=== PATIENT | female | born 1975 | race Caucasian/White ===

== ENCOUNTER 2024-02-23 15:10 | Inpatient (IN) | payer OTHER, SELFPAY ==
[2024-02-23 09:51] VITALS: BP 115/78
[2024-02-23 10:10] LABS: % Basophils 0.4 % (0-2); % Eosinophils 0.9 % (0-6); % Immature Granulocytes 0.4 % (0-0.5); % Lymphocytes 14.3 % (20.5-51.1); Absolute Basophils 0.1 10^3/uL (0-0.2); Absolute Eosinophils 0.1 10^3/uL (0-0.7); Absolute Immature Granulocytes 0.1 10^3/uL (0-0.05); Absolute Monocytes 0.7 10^3/uL (0.1-0.6); Absolute Neutrophils 11.2 10^3/uL (1.4-6.5); Hematocrit 40.3 % (37.0-47.0); Hemoglobin 13.3 g/dL (12.0-16.0); Mean Corpuscular Hgb 29.8 pg (27.0-31.0); Mean Corpuscular Volume 90.4 fL (81.0-99.0); Mean Platelet Volume 8.9 fL (7.4-10.4); Nucleated Red Blood Cells % 0 %; Platelet Count 333 10^3/uL (130-400); Red Blood Cell Count 4.46 10^6/uL (4.20-5.40); Red Cell Dist. Width 12.6 % (11.5-14.5); White Blood Cell Count 14.2 10^3/uL (4.8-10.8)
[2024-02-23 10:25] LABS: Potassium 3.9 mmol/L (3.5-5.1)
[2024-02-23 10:26] LABS: ALT (SGPT) 34 U/L (0-35); AST (SGOT) 29 U/L (14-36); Albumin 4.2 g/dl (3.5-5.0); Alkaline Phosphatase 65 U/L (38-126); Blood Urea Nitrogen 16 mg/dl (7-17); Calcium 9.5 mg/dl (8.4-10.2); Carbon Dioxide 21 mmol/L (22-30); Chloride 107 mmol/L (98-107); Glucose 95 mg/dl (70-99); Sodium 134 mmol/L (135-145); Total Bilirubin 0.5 mg/dl (0.2-1.3); Total Protein 7.6 g/dl (6.3-8.2); eGFR > 60.00
[2024-02-23 11:36] VITALS: BP 127/86
--- NOTE | 2024-02-23 11:38 | ED.GENMED ---
History of Present Illness
General
Chief Complaint: Abdominal Pain
Source: patient
Exam Limitations: none
Time Seen by Provider: 02/23/24 11:18
Nursing documentation reviewed up to this point in time: agreed with
Travel History
Have you had any contact with someone who has COVID-19?: No
Do you have any symptoms of coronavirus? Fever > 100 degrees, chills, cough, shortness of breath, sore throat, loss of taste or smell, muscle aches, or headache?: No
History of Present Illness
History of Present Illness:
8-year-old female with lower abdominal pain, vomiting, diarrhea and rectal bleeding. She feels lower pressure in her abdomen.
Phy Exam
Physical Exam
Physical Exam:
Physical Exam
General: afebrile
Neck: supple. no meningeal signs. normal posterior pharynx
Heart: s1/s2 regular rate and rhythm, no murmur. equal radial
pulses.
HEENT: Pupils equal round reactive to light, EOMI
Lungs: no acute respiratory distress. clear bilaterally
Abdomen: normal bowel sounds. Bilateral lower abdominal tenderness. no CVAT, rectal exam no stool
Neuro: alert and oriented. no focal neurological deficits cranial nerves II through XII intact
Skin: no rash
Psychiatric: well kept. interactive and cooperative
Extremities: no edema. no calf tenderness. negative homans. good distal pulses
Course
Orders/Labs/Results
Orders:
Orders
02/23/24 10:01
CMP [Comprehensive Metabolic Panel] Urgent
Complete Blood Count/With Diff Urgent
HCG, Serum Qualitative Screen Urgent
Comment: ADD ON
02/23/24 11:32
CT Abd/pelvis W Iv Cont Urgent
Comment:
Reason For Exam: bilateral lower abdominal pain, tenderness, n/v/d
02/23/24 11:40
Add On- LAB Urgent
Tests Added?: hcg qualitative
02/23/24 13:40
Electrocardiogram (*1) Stat
Reason for Study: Abdominal Pain
EKG- Treatment ONCE
02/23/24 13:41
Electrocardiogram (*1) Urgent
Reason for Study: Abdominal Pain
Abnormal Lab Results
02/23/24
10:01
WBC 14.2 H 10^3/uL
(4.8-10.8)
Abs Immat Gran (auto) 0.1 H 10^3/uL
(0-0.05)
Absolute Neuts (auto) 11.2 H 10^3/uL
(1.4-6.5)
Absolute Monos (auto) 0.7 H 10^3/uL
(0.1-0.6)
Neutrophils % 79.0 H %
(42.2-75.2)
Lymphocytes % 14.3 L %
(20.5-51.1)
Sodium 134 L mmol/L
(135-145)
Carbon Dioxide 21 L mmol/L
(22-30)
Creatinine 1.1 H mg/dL
(0.6-1.0)
02/23/24 10:01
02/23/24 10:01
Vital Signs
Initial and Last Documented VS:
Initial Vital Signs
Temp Pulse Resp BP Pulse Ox
98.6 F 81 18 115/78 99
02/23/24 09:51 02/23/24 09:51 02/23/24 09:51 02/23/24 09:51 02/23/24 09:51
Last Documented Vital Signs
Temp Pulse Resp BP Pulse Ox
98.9 F 72 18 126/86 98
02/23/24 13:59 02/23/24 13:59 02/23/24 11:36 02/23/24 13:59 02/23/24 13:59
MDM/Problems Addressed
Differential Diagnosis Includes:
Ischemic colitis, rectal bleeding
MDM/Problems Addressed:
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 Admit to hospitalist. [place] text message also sent to gastroenterology, Dr. Montero.
*Radiology
Radiology exam reviewed: radiology read reviewed (CT abdomen pelvis shows colitis, superior mesenteric vein thrombosis)
*Pulse Oximetry
Patient hypoxic: no
*EKG
Interpreted by ED Provider?: Yes
EKG Intrepretation Date: 02/23/24
EKG Intrepretation Time: 13:55
Interpretation: abnormal
Comparison EKG: no comparison EKG present
Heart Rate: 72
Rate: normal
Rhythm: sinus
Advance: normal axis
Interval: normal interval
QRS Pattern: normal QRS
Ischemia: non-specific ST changes
*Seismic Prospecting Observer Interpretation
Rate: normal
Interpretation: normal
Heart Rate: 72
Rhythm: sinus
*Critical Care Note
Total Time (30-74mins, 75-104mins- exclusive of procedures): Not Applicable
Patient Management
Social determinants of health affecting care: Living situation and Strong social support
Discussion with other providers: Hospitalist and Music Engineer (gastroenterology Dr. Montero)
Escalation/DeEscalation of care consider admission/obs:
admit indicated
ED Attending Note
-
Portions of this chart may have been created with voice recognition software.� Occasional wrong word or��sound alike� substitutions may have occurred due to the inherent limitations of voice recognition software.
Discharge Plan
Departure
Patient Disposition: Admit
Date of Disposition: 02/23/24
Time of Disposition: 13:20
Admit to: Telemetry
Presentation/result/management discussed w/ accepting MD/: Hospitalist
Condition: Good
Discharge Problem:
Colitis, Rectal bleeding, Superior mesenteric vein thrombosis
Prescriptions:
No Action
norgestimate-ethinyl estradiol [Ada] 0.25-35 mg-mcg Tablet
1 tab PO DAILY
cyanocobalamin (vitamin B-12) [Vitamin B-12] 1,000 mcg Tablet
1,000 mcg PO DAILY
Hair,Skin and Nails Tablet
1 tab PO HS
topiramate 100 mg Tablet
100 mg PO HS
escitalopram oxalate 20 mg Tablet
20 mg PO DAILY
bupropion HCl 150 mg Tablet Extended Release 24 Hr
150 mg PO DAILY
red yeast rice 600 mg Capsule
600 mg PO DAILY
Ubrelvy 100 mg Tablet
100 mg PO DAILYPRN PRN (Reason: migraine)
rizatriptan
1 tab PO DAILYPRN PRN (Reason: migraine)
Referrals:
Mely Hernandez CRNP [Family Provider] -
Interventions
Interventions:
*General Assessment Last Done: 02/23/24 11:39
ED- Fall Risk Assessment Last Done: 02/23/24 11:39
AO-Lldrrj-Ogoreqvdfb Assessment Last Done: 02/23/24 11:39
Discharge Date and Time
Print Language: MOHAWK
[2024-02-23 12:23] LABS: HCG, Serum Qualitative Screen Negative
[2024-02-23 13:59] VITALS: BP 126/86
--- NOTE | 2024-02-23 14:15 | HPS.HSE ---
Family Physician
-
Family Physician: KEARA Gaytan
Chief Complaint
-
Abdominal pain associated with vomiting diarrhea
History of Present Illness
48-year-old with past medical history for hypothyroidism and migraine presented to us with lower abdominal pressure associate with multiple episodes of nausea, vomiting, diarrhea, rectal bleeding since last night. Patient denied any headache,
dizziness, syncopal episode. Patient denied fever, chills, chest pain, short of breath. Patient patient denied dysuria hematuria.
CT with colitis, stented superior mesenteric vein suspicious for nonocclusive SMV thrombus
Admitted for further management
Medical History
Past Medical History
Past Medical History: Reports Other
Additional Past Medical History:
Hypothyroidism
Migraines
Past Surgical History: Reports Other
Additional Past Surgical History:
[place] tooth extraction
Social History
Tobacco: Non-smoker
Alcohol: None
Drug: None
Personal:
Living: With Family
Family History
Family History: Not pertinent
Allergies / Home Medications
Allergies reflects when Allergies were last updated in [employer].
Home Medications with original date entered in [employer]
Allergy/Medication List:
Allergies
Allergy/AdvReac Type Severity Reaction Status Date / Time
Sulfa (Sulfonamide Allergy Unknown Unknown Verified 02/23/24 09:57
Antibiotics)
Home Medications
bupropion HCl 150 mg 24 hr tablet, extended release 150 mg PO DAILY 02/23/24
cyanocobalamin (vitamin B-12) 1,000 mcg tablet (Vitamin B-12) 1,000 mcg PO DAILY 02/23/24
escitalopram oxalate 20 mg tablet 20 mg PO DAILY 02/23/24
multivitamin with minerals (Hair,Skin and Nails tablet) 1 tab PO HS 02/23/24
norgestimate 0.25 mg-ethinyl estradiol 35 mcg tablet (Ada) 1 tab PO DAILY 02/23/24
red yeast rice 600 mg capsule 600 mg PO DAILY 02/23/24
rizatriptan 1 tab PO DAILYPRN PRN migraine 02/23/24
topiramate 100 mg tablet 100 mg PO HS 02/23/24
ubrogepant 100 mg tablet (Ubrelvy) 100 mg PO DAILYPRN PRN migraine 02/23/24
Review of Systems
-
Constitutional: Reports No Symptoms
EENT: Reports No Symptoms
Respiratory: Reports No Symptoms
Cardiac: Reports No Symptoms
Abdomen/GI: Reports Abdominal Pain, Nausea, Vomiting and Diarrhea
: Reports No Symptoms
Musculoskeletal: Reports No Symptoms
Skin: Reports No Symptoms
Neurological: Reports No Symptoms
Endocrine: Reports No Symptoms
Hematologic/Lymphatic: Reports No Symptoms
Psych: Reports No Symptoms
Physical Exam
Vital Signs
Vital Signs
Temp Pulse Resp BP Pulse Ox
98.9 F 72 18 126/86 98
02/23/24 13:59 02/23/24 13:59 02/23/24 11:36 02/23/24 13:59 02/23/24 13:59
Physical Exam
General: Well Developed, Well Nourished and No Apparent Distress
HEENT: NormoCephalic, Moist mucous membranes and Atraumatic
Respiratory: Clear
Cardiac: S1/S2 and Regular Rhythm; No Murmur or Rub
GI: Soft, Non Distended, Normal Bowel Sounds and Tender; No Organomegaly
Rectal: Deferred by Provider
Musculoskeletal: No Clubbing, No Cyanosis and No Edema
Skin: No Rash
Neuro: AO x 3 and Nonfocal/grossly intact
Psych: Calm
Laboratory Results
-
02/23/24 10:01
02/23/24 10:01
Laboratory Results
Total Bilirubin 0.5 mg/dl (0.2-1.3) 02/23/24 10:01
AST 29 U/L (14-36) 02/23/24 10:01
ALT 34 U/L (0-35) 02/23/24 10:01
Alkaline Phosphatase 65 U/L (38-126) 02/23/24 10:01
Data Reviewed
-
CT Scan: Report Reviewed by me
Lab Data: Labs Reviewed by me
Impression/Plan
-
# Rectal bleeding likely from colitis
-WBCs 14.2
-CT abdomen pelvis with impression of Mild to moderate colitis extending from the transverse colon through the mid sigmoid colon. Mild pericolonic stranding. No free fluid seen within the abdomen or pelvis.Small filling defect seen within the
central superior mesenteric vein suspicious for nonocclusive SMV thrombus.
-Hemoglobin stable at 13.3
-Continue to trend hemoglobin
-GI consulted
-colorectal consulted
# Nonocclusive SMV thrombus
-AC deferred to vascular due to rectal bleeding
-vascular consulted
# Acute kidney injury/hyponatremia likely from dehydration
-Creatinine 1.1, sodium 134
-Normal saline continued
-Monitor BMP in a.m.
# Depression/anxiety
-Bupropion, citalopram continued
# Migraines
-Rizatriptan and Topamax continued
# DVT prophylaxis
-
# CODE STATUS
-Full code
[2024-02-23 15:00] VITALS: BP 120/80
--- NOTE | 2024-02-23 15:34 | CON.VAS ---
Medical History
-
Chief Complaint: abd pain, bloody diarrhea
History of Present Illness:
48-year-old female with no significant past medical history
No history of DVT
No history of inflammatory bowel disease
Normal colonoscopy in July 2023
No significant family history for any of the above
Acute onset abdominal pain with diarrhea yesterday evening
Progressed to grossly bloody diarrhea overnight
Presents to the emergency room this morning
She knows of nothing that may have precipitated the current symptoms.
Denies travel
Denies changes to her diet
No unusual foods prior to the onset of symptoms
Cross-sectional imaging demonstrated nonocclusive thrombus in the superior mesenteric vein
Vascular surgery consulted
Past Medical History
Past Medical History: Hypothyroidism and Other (migraines, anxiety)
Past Surgical History: None
Social History
Tobacco: Non-Smoker
Personal:
Living: With Family
Family History
Family History: Reviewed & Not Pertinent and Other (Specifically denies family history of inflammatory bowel disease, hypercoagulability, venous thromboembolism)
Allergies / Home Medications
Allergy/AdvReac Type Severity Reaction Status Date / Time
Sulfa (Sulfonamide Allergy Unknown Unknown Verified 02/23/24 09:57
Antibiotics)
�Medication �Instructions �Recorded �Confirmed �Type
bupropion HCl 150 mg 24 hr tablet, 150 mg PO DAILY 02/23/24 02/23/24 History
extended release
cyanocobalamin (vitamin B-12) 1,000 mcg PO DAILY 02/23/24 02/23/24 History
1,000 mcg tablet (Vitamin B-12)
escitalopram oxalate 20 mg tablet 20 mg PO DAILY 02/23/24 02/23/24 History
multivitamin with minerals 1 tab PO HS 02/23/24 02/23/24 History
(Hair,Skin and Nails tablet)
norgestimate 0.25 mg-ethinyl 1 tab PO DAILY 02/23/24 02/23/24 History
estradiol 35 mcg tablet (Ada)
red yeast rice 600 mg capsule 600 mg PO DAILY 02/23/24 02/23/24 History
rizatriptan 1 tab PO DAILYPRN PRN migraine 02/23/24 02/23/24 History
topiramate 100 mg tablet 100 mg PO HS 02/23/24 02/23/24 History
ubrogepant 100 mg tablet (Ubrelvy) 100 mg PO DAILYPRN PRN migraine 02/23/24 02/23/24 History
Review of Systems
-
History Source: Patient
All other systems: Negative unless noted
Physical Exam
Vital Signs
Temp Pulse Resp BP Pulse Ox
98.9 F 72 18 126/86 98
02/23/24 13:59 02/23/24 13:59 02/23/24 11:36 02/23/24 13:59 02/23/24 13:59
Lab Results
02/23/24 10:01
02/23/24 10:01
Physical Exam
General: Well Developed, No Apparent Distress and Comfortable
HEENT: Normocephalic
Respiratory: Non Labored Respirations
Cardiac: Regular Rhythm
GI: Non Distended
Neuro: AO x 3
Psych: Calm
Assessment / Plan
-
Nonocclusive superior mesenteric vein thrombus as seen on the airline security representative images above. Diffuse left sided colitis with bloody diarrhea. The treatment for this would be initiation of systemic anticoagulation. Colorectal surgery has been
consulted. Would recommend starting this when it is felt to be safe from a colorectal surgery standpoint given her active colitis and lower GI bleeding. Suspect thrombus is related to active inflammation in the colon. Initiate IV ABX in an effort
to simultaneously treat infectious colitis and reduce risk of thrombus conversion to pylephebitis.
Please call with questions or concerns.
Parish Giordano III, MD
[facility]
[phone] (cell)
Data Reviewed
-
CT Scan: Image Personally Visualized and interpreted and Report Reviewed by me
Medical Tests (Nuc Med, Echo etc): Image Personally Visualized and interpreted
Labs: Labs Reviewed by me
--- NOTE | 2024-02-23 15:59 | CON.CRS ---
Consultation
-
Date/Time Consultation Requested: 02/23/24 @14:51
Date/Time Consultation Performed: 02/23/24 @15:45
Requesting Provider: KEARA Dominguez
Performing Provider: Cullen Acuna MD
Reason for Consultation: Colitis
Medical History
-
Chief Complaint: Abdominal pain and bloody diarrhea
History of Present Illness:
48-year-old female presents to the emergency room after developing cramping abdominal pain that started 11 PM last night. Her first bowel was normal but subsequent ones became loose. The last couple bowel movements were bright red blood with very
little stool. She has intermittent cramping in the lower abdomen at present just mild discomfort. She denies any fevers or chills. She did have some vomiting last night but at present denies any nausea. She denies eating anything uncooked and no
one else at home is ill. Typically her bowels are regular and she underwent a colonoscopy in July 2023 that was reportedly normal. She underwent a as well as a laparoscopy in the past.
While in the ER she has been afebrile with normal vital signs. She is not tachycardic. White count is 14.2 and hemoglobin is 13.3 g/dL. Her BUN is 16 and creatinine 1.1. A CT scan of the abdomen and pelvis with contrast reveals mild to moderate
thickening of the distal transverse colon extending to the mid sigmoid colon associated with pericolonic stranding compatible with colitis. There is no pneumatosis or free air. There does appear to be a small filling defect within the central
superior mesenteric vein suspicious for nonocclusive SMV thrombus.
Past Medical History
Past Medical History: Hypothyroidism and Other (Migraines)
Past Surgical History: Gynecological ( and laparoscopy)
Social History
Tobacco: Non-Smoker
Drug: None
Personal:
Living: With Family
Employment: Employed
Family History
Family History: Reviewed & Not Pertinent
Allergies / Home Medications
Allergy/AdvReac Type Severity Reaction Status Date / Time
Sulfa (Sulfonamide Allergy Unknown Unknown Verified 02/23/24 09:57
Antibiotics)
�Medication �Instructions �Recorded �Confirmed �Type
bupropion HCl 150 mg 24 hr tablet, 150 mg PO DAILY 02/23/24 02/23/24 History
extended release
cyanocobalamin (vitamin B-12) 1,000 mcg PO DAILY 02/23/24 02/23/24 History
1,000 mcg tablet (Vitamin B-12)
escitalopram oxalate 20 mg tablet 20 mg PO DAILY 02/23/24 02/23/24 History
multivitamin with minerals 1 tab PO HS 02/23/24 02/23/24 History
(Hair,Skin and Nails tablet)
norgestimate 0.25 mg-ethinyl 1 tab PO DAILY 02/23/24 02/23/24 History
estradiol 35 mcg tablet (Ada)
red yeast rice 600 mg capsule 600 mg PO DAILY 02/23/24 02/23/24 History
rizatriptan 1 tab PO DAILYPRN PRN migraine 02/23/24 02/23/24 History
topiramate 100 mg tablet 100 mg PO HS 02/23/24 02/23/24 History
ubrogepant 100 mg tablet (Ubrelvy) 100 mg PO DAILYPRN PRN migraine 02/23/24 02/23/24 History
Review of Systems
-
History Source: Patient
All other systems: Negative unless noted
A 10 point review of systems was completed, and was negative except as per HPI.
Physical Exam
Vital Signs
Temp 98.9 F 02/23/24 13:59
Pulse 72 02/23/24 13:59
Resp Rate 18 02/23/24 11:36
Blood pressure 126/86 02/23/24 13:59
SaO2 98 02/23/24 13:59
02/22/24 02/23/24 02/24/24
06:59 06:59 06:59
Actual Weight 73.2 kg
Lab Results / Allergies
02/23/24 10:01
02/23/24 10:01
WBC 14.2 10^3/uL (4.8-10.8) H 02/23/24 10:01
Hgb 13.3 g/dL (12.0-16.0) 02/23/24 10:01
Hct 40.3 % (37.0-47.0) 02/23/24 10:01
Plt Count 333 10^3/uL (130-400) 02/23/24 10:01
Abs Immat Gran (auto) 0.1 10^3/uL (0-0.05) H 02/23/24 10:01
Neutrophils % 79.0 % (42.2-75.2) H 02/23/24 10:01
Allergy/AdvReac Type Severity Reaction Status Date / Time
Sulfa (Sulfonamide Allergy Unknown Unknown Verified 02/23/24 09:57
Antibiotics)
Physical Exam
General: Well Developed, Well Nourished and No Apparent Distress
HEENT: Anicteric
GI: Soft, Non Distended and Tender (Mild lower abdomen without peritoneal signs)
Musculoskeletal: No Edema
Neuro: Awake and Alert
Data Reviewed
-
CT Scan: Image Personally Visualized and interpreted, Report Reviewed by me, Discussed with Patient and Discussed with Family
Labs: Labs Reviewed by me, Discussed with Patient and Discussed with Family
Total Time Spent with Patient (in minutes): 48
Assessment / Plan
-
Left-sided colitis of uncertain etiology. She does not appear toxic and there is no indication for surgery at this time.
I did review the possible causes of colitis including infectious, ischemia, diverticulitis, and IBD. She also appears to have nonocclusive SMA thrombus and has been seen by vascular surgery. Given her rectal bleeding, will hold on anticoagulation
at this time.
The plan is for hydration, antibiotics, and bowel rest.
Further evaluation, including possible endoscopy or surgery will be dependent upon her clinical course.
[2024-02-23 16:00] VITALS: BP 133/90
[2024-02-23] MEDS: NSS 1000 IV (16:04)
[2024-02-23 17:55] VITALS: BMI 28.9
--- NOTE | 2024-02-23 18:39 | W.PN.UPDATE ---
Update Note
Progress Note Update
This note serves as an addendum to the H&P by KEARA Dominguez on February 23, 2024.
48-year-old with past medical history for hypothyroidism and migraine presented to us with lower abdominal pressure associate with multiple episodes of nausea, vomiting, diarrhea, rectal bleeding since last night. Patient denied any headache,
dizziness, syncopal episode.
CT with colitis, stented superior mesenteric vein suspicious for nonocclusive SMV thrombus.
Vital Signs
Afebrile
HR okay
BP okay
RR okay
Oxygen saturation 98% on room air
Physical Exam
General: Not in acute distress
HEENT: Normocephalic, Moist mucous membranes and Atraumatic
Respiratory: Clear
Cardiac: S1/S2 and Regular Rhythm
GI: Soft, Non Distended, Normal Bowel Sounds and Tender
Musculoskeletal: No Cyanosis and No Edema
Skin: Warm. Dry.
Neuro: AAO x 3 and Nonfocal/grossly intact
Psych: Calm
Assessment/Plan
# Rectal bleeding likely from colitis
-WBCs 14.2
-CT abdomen pelvis with radiologist's impression of Mild to moderate colitis extending from the transverse colon through the mid sigmoid colon. Mild pericolonic stranding. No free fluid seen within the abdomen or pelvis.Small filling defect seen
within the central superior mesenteric vein suspicious for nonocclusive SMV thrombus.
-Hemoglobin stable at 13.3
-Continue to trend hemoglobin
-GI consulted
-colorectal consulted
# Nonocclusive SMV thrombus
-Thrombus could be from colitis
-AC deferred to vascular due to rectal bleeding -- Hold Heparin Drip/Anticoagulation for now
-vascular consulted
-Start IV antibiotics to simultaneously treat infectious colitis and reduce risk of thrombus conversion to pylephebitis, as per vascular surgery
# Acute kidney injury/hyponatremia likely from dehydration
-Creatinine 1.1, sodium 134
-Normal saline continued
-Monitor BMP in a.m.
# Depression/anxiety
-Bupropion, citalopram continued
# Migraines
-Rizatriptan and Topamax continued
# DVT prophylaxis
-SCDs only, due to bleeding
# CODE STATUS
-Full code
[2024-02-23] MEDS: ROCEPHIN 2000 MG IV (20:18)
[2024-02-23] MEDS: STERILE WATER FOR INJECTION 20 ML IV (20:19)
[2024-02-23] MEDS: FLAGYL 500 MG 100 IV (20:48)
[2024-02-23] MEDS: TOPAMAX 100 MG PO (21:49)
[2024-02-23 23:00] VITALS: BP 114/78
[2024-02-24] MEDS: FLAGYL 500 MG 100 IV ×3 (05:18→21:16)
--- NOTE | 2024-02-24 05:25 | CON.GI ---
Addendum entered and electronically signed by Breann Alonso Do, MD 02/24/24 11:31:
I saw and examined the patient.
The TIRE DUSTER's note was reviewed and I agree with the note.
Comment: Sarah is a 48yo W on chronic OCP and migraines who was admitted for acute abd pain and hematochezia. No prior episode in past. She had recent colonoscopy 2022 at [facility] that was normal VSS mild TTP in L side of abdomen.
No guarding or rebound. Labs reviewed no anemia. Mild leukocytosis. CTAP reviewed with 1. Mild to moderate colitis extending from the transverse colon through the mid sigmoid colon. Mild pericolonic stranding. Small filling defect seen within
the central superior mesenteric vein suspicious for nonocclusive SMV thrombus.
Impression
- L sided colitis in setting of non-occlusive SMV thrombus suggestive of ischemic colitis
Less likely ulcerative colitis given recent normal colonoscopy in 2012
- Rectal bleeding
- Chronic OCP
- Migraines
Recommendations
- Agree with bowel rest, c/w IVF
- Abd pain much improved today
- Consider CLD for dinner
- Monitor stool output
- C/w abx to prevent gut bacterial translocation
- Advise her to stop OCPs and migraine med which has been linked with ischemic colitis in past
- Consider OP heme evaluation to r/o hypercoagulable conditions
- Appreciate vascular and colorectal surgery recommendations. If rectal bleeding subsides can consider anticoagulation
Will follow with you
Original Note:
Consultation
-
Date/Time Consultation Requested: 02/23/24 8085
Date/Time Consultation Performed: 02/24/24 0630
Requesting Provider: KEARA Michelle
Performing Provider: KEARA Sharp, Breann Montero MD
Reason for Consultation: colitis
Medical History
Chief Complaint / HPI
Chief Complaint: abdominal pain, vomiting
History of Present Illness:
Pt is a 48yo with hx hypothyroidism, migraines with medication adjustments in last few months, hormonal therapy for control with onset of lower abdominal pain with nausea, vomiting, diarrhea and rectal bleeding. On admission CT noted with
mild to moderate colitis from transverse colon through mid sigmoid with mild stranding. Small defect in SMV with concern for non occlusive SMV thrombosis. Labs on admission notable for WBC 14,200, Na 134, creat 1.1. [facility] has been seen by vascular surgery and recommended systemic anticoagulation when stable from colorectal standpoint with concern for thrombus from active inflammation in colon . Pt also seen by colorectal surgery and
recommended to hold anticoagulation until active bleeding improved.
At this time pain states she was well until when she began with abdominal pain with diarrhea and vomiting. She continued with stools that became all blood and still passing some blood overnight. Pain was 10/10 at time with waves of
pain now improving. She has rare GERD and denies dysphagia, diarrhea, constipation prior. Pt also admits to prior wt loss with Ozempic and Trelegy use last year.
Past Medical History
Past Medical History: Hypothyroidism, Psychiatric (anxiety) and Other (migraines with recent med adjustment, hormonal therapy)
Past Surgical History: and Other (wisdom teeth extraction)
Social History
Tobacco: Non-Smoker
Alcohol: Occasional (rare)
Drug: None
Living: With Family
Employment: Employed
Family History
Family History: Other (denies family history of colon CA, inflammatory bowel disease, hypercoagulability, venous thromboembolism)
Allergies / Home Medications
Allergy/AdvReac Type Severity Reaction Status Date / Time
Sulfa (Sulfonamide Allergy Unknown Verified 02/23/24 17:48
Antibiotics)
�Medication �Instructions �Recorded
bupropion HCl 150 mg 24 hr tablet, 150 mg PO DAILY 02/23/24
extended release
cyanocobalamin (vitamin B-12) 1,000 mcg PO DAILY 02/23/24
1,000 mcg tablet (Vitamin B-12)
escitalopram oxalate 20 mg tablet 20 mg PO DAILY 02/23/24
multivitamin with minerals 1 tab PO HS 02/23/24
(Hair,Skin and Nails tablet)
norgestimate 0.25 mg-ethinyl 1 tab PO DAILY 02/23/24
estradiol 35 mcg tablet (Ada)
red yeast rice 600 mg capsule 600 mg PO DAILY 02/23/24
rizatriptan 1 tab PO DAILYPRN PRN migraine 02/23/24
topiramate 100 mg tablet 100 mg PO HS 02/23/24
ubrogepant 100 mg tablet (Ubrelvy) 100 mg PO DAILYPRN PRN migraine 02/23/24
Review of Systems
-
History Source: Patient
Constitutional: Reports Weight Loss (last year)
EENT: Reports No Symptoms
Respiratory: Reports No Symptoms
Cardiac: Reports No Symptoms
Abdomen/GI: Reports Abdominal Pain, Nausea, Diarrhea and Bloody Stools
: Reports No Symptoms
Musculoskeletal: Reports No Symptoms
Skin: Reports No Symptoms
Neurological: Reports No Symptoms
Endocrine: Reports No Symptoms
Hematologic/Lymphatic: Reports No Symptoms
Vital Signs
Temp Pulse Resp BP Pulse Ox
98.6 F 77 18 114/78 97
02/23/24 23:00 02/23/24 23:00 02/23/24 23:00 02/23/24 23:00 02/23/24 23:00
Physical Exam
Exam
General: Well Developed, Well Nourished and No Apparent Distress
HEENT: Normocephalic, Anicteric and Moist Mucous Membranes
Respiratory: Clear
Cardiac: Regular Rhythm
GI: Soft, Non Distended and Tender (minimal LLQ )
Musculoskeletal: No Clubbing and No Cyanosis
Skin: Warm and Dry
Neuro: Awake, Alert and AO x 3
Psych: Calm
Results
WBC 14.2 10^3/uL (4.8-10.8) H 02/23/24 10:01
Hgb 13.3 g/dL (12.0-16.0) 02/23/24 10:01
Hct 40.3 % (37.0-47.0) 02/23/24 10:01
MCV 90.4 fL (81.0-99.0) 02/23/24 10:01
Plt Count 333 10^3/uL (130-400) 02/23/24 10:01
Absolute Neuts (auto) 11.2 10^3/uL (1.4-6.5) H 02/23/24 10:01
Sodium 134 mmol/L (135-145) L 02/23/24 10:01
Potassium 3.9 mmol/L (3.5-5.1) 02/23/24 10:01
Chloride 107 mmol/L (98-107) 02/23/24 10:01
Carbon Dioxide 21 mmol/L (22-30) L 02/23/24 10:01
BUN 16 mg/dl (7-17) 02/23/24 10:01
Creatinine 1.1 mg/dL (0.6-1.0) H 02/23/24 10:01
Calcium 9.5 mg/dl (8.4-10.2) 02/23/24 10:01
Total Bilirubin 0.5 mg/dl (0.2-1.3) 02/23/24 10:01
AST 29 U/L (14-36) 02/23/24 10:01
ALT 34 U/L (0-35) 02/23/24 10:01
Alkaline Phosphatase 65 U/L (38-126) 02/23/24 10:01
Diagnostic Image Results:
02/23/24
CT Abd/pelvis W Iv Cont
1. Mild to moderate colitis extending from the transverse colon through the mid sigmoid colon. Mild pericolonic stranding. No free fluid seen within the abdomen or pelvis.
2. Small filling defect seen within the central superior mesenteric vein suspicious for nonocclusive SMV thrombus.
3. Additional findings above.
Prior GI Procedures:
Colonoscopy: normal per patient [facility]
Assessment / Plan
-
Pt is a 48yo with hx hypothyroidism, migraines with onset of lower abdominal pain with nausea, vomiting, diarrhea and rectal bleeding. On admission CT noted with mild to moderate colitis from transverse colon through mid sigmoid with mild
stranding. Small defect in SMV with concern for non occlusive SMV thrombosis. Labs on admission notable for WBC 14,200, Na 134, creat 1.1. Hx normal colonoscopy 2022. Pt has been seen by vascular surgery and recommended systemic anticoagulation
when stable from colorectal standpoint with concern for thrombus from active inflammation in colon . Pt also seen by colorectal surgery and recommended to hold anticoagulation until active bleeding improved.
-colitis transverse through sigmoid
-non occlusive SMV thrombosis
-leukocytosis
-NUBIA on admission
-migraines with recent medication adjustment and use of Rizatriptan
-chronic hormone therapy for control
other med problems:
-hypothyroidism
-depression/anxiety
PLAN:
etiology of colitis related to ischemic colitis with concern for SMV thrombosis, infection, vs less likely IBD with recent normal colonoscopy vs other
agree with abx, bowel rest
consider AC when acute bleeding improves
hx colonoscopy 2022 t/c repeat outpatient to ensure no underlying IBD vs other
discussed at length with patient chronic medication-- hormone therapy contraindicated with hx migraines and now concern for thrombosis -- advised to discuss further with [facility] . she has discussed in past with hx migraines. Also recent migraine med
adjustment--use of Rizatriptan is risk for ischemic colitis -- advised follow up with neurology for migraine management.
NPO advance diet when bleeding improved
consider OP colonoscopy after discharge vs inpatient if not improving
-
-
Thank you for consultation and allowing me to participate in the patient's care. Please call the front desk lead GI physician during the after hours with any questions or concerns.
[2024-02-24 07:40] VITALS: BP 119/75
[2024-02-24 08:47] LABS: Hematocrit 38.3 % (37.0-47.0); Hemoglobin 12.8 g/dL (12.0-16.0); Mean Corp Hgb Conc. 33.4 g/dL (33.0-37.0); Mean Corpuscular Hgb 30.2 pg (27.0-31.0); Mean Corpuscular Volume 90.3 fL (81.0-99.0); Mean Platelet Volume 9.4 fL (7.4-10.4); Platelet Count 314 10^3/uL (130-400); Red Blood Cell Count 4.24 10^6/uL (4.20-5.40); Red Cell Dist. Width 12.8 % (11.5-14.5); White Blood Cell Count 13.4 10^3/uL (4.8-10.8)
--- NOTE | 2024-02-24 08:57 | W.PN.CRS1 ---
Today's Communication / Plan
-
stool studies
Assessment/Plan
-
48 yo female with left sided colitis of unclear etiology. Infectious work up underway. Nonocclusive SMA thrombus present (suspected d/t inflammation of colon), vascular following
AFVSS
Pain improving
Still passing blood rectally, however, pain/cramping improved
Labs today still pending
No plans for surgery today. GI following with us for additional work up
--Stool studies ordered/pending
--Continue abx, hydration and bowel rest
--Follow labs
--Hold AC until resolution in rectal bleeding
Subjective Data
Subjective Data
Date of Service: February 24, 2024
Patient seen and examined at bedside with Dr. Delgado. Reports abdominal cramping/pain is much improved. Denies n/v. Hungry. Notes when she voids, bright red blood is coming from rectum as well.
Objective Data
-
Vital Signs
Temp Pulse Resp BP Pulse Ox
98.6 F 77 18 114/78 97
02/23/24 23:00 02/23/24 23:00 02/23/24 23:00 02/23/24 23:00 02/23/24 23:00
Intake & Output
02/23/24 02/24/24 02/25/24
06:59 06:59 06:59
Intake Total 960 / 960
Balance 960 / 960
Intake:
Oral fluids 0 / 0
IV fluids (Total) 960 / 960
Other:
Number of approximated MODERATE 2
amounts of urine
Number of unmeasured liquid
stools
Rectum 2
Physical Exam
-
General: No Acute Distress
Abdomen: Soft, Non Distended and Tender (very minimal to left side)
Skin: Warm and Dry
[2024-02-24] MEDS: WELLBUTRIN XL (24 hour extended release) 150 MG PO (09:57)
[2024-02-24] MEDS: LEXAPRO 20 MG PO (09:57)
[2024-02-24] MEDS: NSS 1000 IV ×2 (09:58→21:16)
[2024-02-24 10:45] LABS: Blood Urea Nitrogen 12 mg/dl (7-17); Calcium 8.6 mg/dl (8.4-10.2); Carbon Dioxide 20 mmol/L (22-30); Chloride 109 mmol/L (98-107); Estimated Creatinine Clearance 57 ml/min; Glucose 70 mg/dl (70-99); Potassium 3.5 mmol/L (3.5-5.1); Sodium 136 mmol/L (135-145); eGFR > 60.00
--- NOTE | 2024-02-24 11:31 | W.PN.UPDATE ---
Update Note
Progress Note Update
Billing purposes
[2024-02-24] MEDS: TYLENOL 650 MG PO ×2 (11:43→17:08)
--- NOTE | 2024-02-24 12:09 | W.PN.HOSP.TC ---
Today's Communication/Plan
-
Monitor vitals
see plan
NPO, IVF, bowel rest
Continue with antibiotics
stool studies
hopeful AC soon
Assessment / Plan
Assessment / Plan
General: Well Developed, Well Nourished and No Apparent Distress
HEENT: NormoCephalic, Moist mucous membranes and Atraumatic
Respiratory: Clear
Cardiac: S1/S2 and Regular Rhythm; No Murmur or Rub
GI: Soft, Non Distended, Normal Bowel Sounds and Tender; No Organomegaly
Rectal: Deferred by Provider
Musculoskeletal: No Clubbing, No Cyanosis and No Edema
Skin: No Rash
Neuro: AO x 3 and Nonfocal/grossly intact
Psych: Calm
Rectal bleeding likely from acute colitis
-CT abdomen pelvis with impression of Mild to moderate colitis extending from the transverse colon through the mid sigmoid colon. Mild pericolonic stranding. No free fluid seen within the abdomen or pelvis.Small filling defect seen within the
central superior mesenteric vein suspicious for nonocclusive SMV thrombus.
-Continue to trend hemoglobin
-GI following
-colorectal following
Stool studies ordered by GI, pending
Continued antibiotics
# Nonocclusive SMV thrombus
-AC deferred to vascular due to rectal bleeding
-vascular following, likely start AC once okay with GI and colorectal from bleeding standpoint
should follow-up with hematology outpatient
# Acute kidney injury/hyponatremia likely from dehydration
Monitor with fluids
# Depression/anxiety
-Bupropion, citalopram continued
# Migraines
-Hold rizatriptan
Topamax continued
# DVT prophylaxis
-SCD's
# CODE STATUS
-Full code
Anticipated Discharge: > 48 hours
Subjective/Interval History
-
Date of Service: February 24, 2024
Mild rectal discomfort
Objective Data
-
Labs:
Laboratory Results
02/24/24
07:52
WBC 13.4 H
Hgb 12.8
Hct 38.3
Plt Count 314
Sodium 136
Potassium 3.5
Chloride 109 H
Carbon Dioxide 20 L
BUN 12
Creatinine 1.1 H
Glucose 70
Calcium 8.6
Vital Signs:
Vital Signs
Temp Pulse Resp BP Pulse Ox
98.9 F 75 18 119/75 98
02/24/24 07:40 02/24/24 07:40 02/24/24 07:40 02/24/24 07:40 02/24/24 07:40
I&O
02/23/24 02/24/24 02/25/24
06:59 06:59 06:59
Intake Total 960 / 960
Balance 960 / 960
--- NOTE | 2024-02-24 13:34 | CM ---
Initial assessment completed with pt and her at the bedside.
Pt is a 48yr old female admitted with colitis and rectal bleeding.
At baseline, pt lives with her and son in a multi level home with 1 step to enter.
Pt is independent at baseline with all mobility and ADLs, driving and working.
No current/hx of VN/DME/SNF.
PLAN; dc to home with no needs.
[2024-02-24 15:20] VITALS: BP 112/75
[2024-02-24] MEDS: ROCEPHIN 2000 MG IV (20:51)
[2024-02-24] MEDS: STERILE WATER FOR INJECTION 20 ML IV (20:52)
[2024-02-24] MEDS: TOPAMAX 100 MG PO (21:02)
[2024-02-24 23:49] VITALS: BP 115/76
[2024-02-25] MEDS: FLAGYL 500 MG 100 IV ×3 (04:09→23:43)
[2024-02-25 07:00] VITALS: BP 113/76
[2024-02-25] MEDS: NSS 1000 IV ×2 (08:01→23:44)
[2024-02-25] MEDS: DILAUDID 0.5 MG IV (08:01)
[2024-02-25] MEDS: LEXAPRO 20 MG PO (08:01)
[2024-02-25] MEDS: WELLBUTRIN XL (24 hour extended release) 150 MG PO (08:01)
[2024-02-25] MEDS: ZOFRAN 4 MG IV (08:01)
[2024-02-25 08:18] LABS: Hematocrit 36.4 % (37.0-47.0); Hemoglobin 12.1 g/dL (12.0-16.0); Mean Corp Hgb Conc. 33.2 g/dL (33.0-37.0); Mean Corpuscular Volume 90.3 fL (81.0-99.0); Mean Platelet Volume 9.1 fL (7.4-10.4); Platelet Count 309 10^3/uL (130-400); Red Blood Cell Count 4.03 10^6/uL (4.20-5.40); Red Cell Dist. Width 12.5 % (11.5-14.5); White Blood Cell Count 13.4 10^3/uL (4.8-10.8)
[2024-02-25 09:01] LABS: Blood Urea Nitrogen 12 mg/dl (7-17); Calcium 8.5 mg/dl (8.4-10.2); Carbon Dioxide 19 mmol/L (22-30); Chloride 109 mmol/L (98-107); Estimated Creatinine Clearance 63 ml/min; Glucose 61 mg/dl (70-99); Magnesium 2.2 mg/dl (1.6-2.3); Potassium 3.5 mmol/L (3.5-5.1); Sodium 135 mmol/L (135-145); eGFR > 60.00
--- NOTE | 2024-02-25 09:59 | W.PN.CRS1 ---
Today's Communication / Plan
-
Ok for anticoagulation
Assessment/Plan
-
48 yo female with left sided colitis of unclear etiology. Infectious work up underway. Nonocclusive SMV thrombus present (suspected d/t inflammation of colon), vascular following
AFVSS
Pain/bleeding improving on antibiotics
No further bloody stools for approx 24 hours
H/H stable
No plans for surgery today. GI following with us for additional work up
C-diff, Giardia neg. Other stool studies pending
--OK for heparin gtt, would avoid boluses
--Continue abx, hydration and bowel rest
--Follow labs
--Clear liquids today, ok to advance to solids for dinner tonight if no bleeding on anticoagulation
Subjective Data
Subjective Data
Date of Service: February 25, 2024
Patient seen and examined at bedside with Dr. Philip. Brunner n/v. Pain continues to improve, nearly resolved. No stools since 10:30am yesterday. Eager to have diet advanced.
Objective Data
-
Vital Signs
Temp Pulse Resp BP Pulse Ox
98.3 F 77 18 113/76 97
02/25/24 07:00 02/25/24 07:00 02/25/24 07:00 02/25/24 07:00 02/25/24 07:00
Intake & Output
02/24/24 02/25/24 02/26/24
06:59 06:59 06:59
Intake Total 960 / 960 0 / 0
Balance 960 / 960 0 / 0
Intake:
Oral fluids 0 / 0 0 / 0
IV fluids (Total) 960 / 960
Other:
Number of approximated SMALL 1
amounts of urine
Number of approximated MODERATE 2 5
amounts of urine
Number of unmeasured liquid
stools
Rectum 2
Lab Results
02/25/24 07:53
02/25/24 07:53
Physical Exam
-
General: No Acute Distress
HEENT: Grossly Normal
Abdomen: Soft, Non Distended and Non Tender
Skin: Warm and Dry
--- NOTE | 2024-02-25 10:47 | W.PN.GI.CBS2 ---
Today's Communication / Plan
-
CLD now if tolerates LRD for dinner
Start heparin gtt today
Assessment / Plan
-
Sarah is a 48yo with hx hypothyroidism, migraines with onset of lower abdominal pain with nausea, vomiting, diarrhea and rectal bleeding. On admission CT noted with mild to moderate colitis from transverse colon through mid sigmoid with mild
stranding. Small defect in SMV with concern for non occlusive SMV thrombosis. Normal colonoscopy per pt 2022 at [facility].
Impression
-colitis transverse through sigmoid colon suspect to be ischemic
-non occlusive SMV thrombosis
-leukocytosis
-NUBIA on admission
-migraines with recent medication adjustment and use of Rizatriptan
-chronic hormone therapy for control
-hypothyroidism
-depression/anxiety
Plan
- Agree with adv to CLD
- Low residue for dinner if tolerates above
- Agree with starting heparin gtt today given stable H/H and no further rectal bleeding
- C/w abx
- Stool studies thus far negative
- Stopping oral contraceptives and migraine med nursing home
- Advise see hematology for OP hypercoagulable workup in future
- Appreciate surgical recs
Will follow with you. Above d/w surgery
Subjective
Subjective
Date of Service: February 25, 2024
She has had no further abd cramping. Last rectal bleeding was 1030am yesterday.
Objective
Data Reviewed
Laboratory Data:
Laboratory Results
02/25/24 07:53
02/25/24 07:53
Laboratory Results
Magnesium 2.2 mg/dl (1.6-2.3) 02/25/24 07:53
Total Bilirubin 0.5 mg/dl (0.2-1.3) 02/23/24 10:01
AST 29 U/L (14-36) 02/23/24 10:01
ALT 34 U/L (0-35) 02/23/24 10:01
Alkaline Phosphatase 65 U/L (38-126) 02/23/24 10:01
Vital Signs and I&O:
Vital Signs
Temp Pulse Resp BP Pulse Ox
98.3 F 77 18 113/76 97
02/25/24 07:00 02/25/24 07:00 02/25/24 07:00 02/25/24 07:00 02/25/24 07:00
I&O
02/24/24 02/25/24 02/26/24
06:59 06:59 06:59
Intake Total 960 / 960 0 / 0
Balance 960 / 960 0 / 0
Physical Exam
Physical Exam
GEN: No acute distress, conversant, pleasant
HEENT: anicteric, extraocular movements intact, clear oropharynx without exudates
GI: soft, non-distended, not tender to palpation, normal active bowel sounds, no hepatosplenomegaly
EXT: warm, well perfused, no edema bilaterally
NEURO: AAOx3, non-focal
[2024-02-25] MEDS: SYNTHROID 75 MCG PO (10:48)
--- NOTE | 2024-02-25 11:04 | W.PN.HOSP.TC ---
Today's Communication/Plan
-
Monitor vital signs and see plan
Start clears
Start heparin drip, discussed with colorectal
Vascular to see
Will need hematology follow-up outpatient for hypercoagulable workup
Colitis appears ischemic
Assessment / Plan
Assessment / Plan
General: Well Developed, Well Nourished and No Apparent Distress
HEENT: NormoCephalic, Moist mucous membranes and Atraumatic
Respiratory: Clear
Cardiac: S1/S2 and Regular Rhythm; No Murmur or Rub
GI: Soft, Non Distended, Normal Bowel Sounds and Tender; No Organomegaly
Rectal: Deferred by Provider
Musculoskeletal: No Clubbing, No Cyanosis and No Edema
Skin: No Rash
Neuro: AO x 3 and Nonfocal/grossly intact
Psych: Calm
Rectal bleeding likely from acute colitis, suspect ischemic
-CT abdomen pelvis with impression of Mild to moderate colitis extending from the transverse colon through the mid sigmoid colon. Mild pericolonic stranding. No free fluid seen within the abdomen or pelvis.Small filling defect seen within the
central superior mesenteric vein suspicious for nonocclusive SMV thrombus.
-Continue to trend hemoglobin
-GI following no further bleeding since yesterday. Spoke with colorectal surgery and will start heparin drip. Also started on clears
-colorectal following
Stool studies ordered by GI, pending
Continued antibiotics
# Nonocclusive SMV thrombus
now on hep gtt
-vascular following
should follow-up with hematology outpatient
# Does not appear had NUBIA on admission, unknown baseline
Continue to monitor creatinine
Monitor with fluids, DC fluids once able to tolerate diet
Hypothyroidism
Synthroid
# Depression/anxiety
-Bupropion, citalopram continued
# Migraines
-Hold rizatriptan
Topamax continued
# DVT prophylaxis
-heparin
# CODE STATUS
-Full code
Anticipated Discharge: 24 - 48 hours
Subjective/Interval History
-
Date of Service: February 25, 2024
Denies pain
Objective Data
-
Labs:
Laboratory Results
02/25/24 02/25/24
07:53 10:20
WBC 13.4 H
Hgb 12.1
Hct 36.4 L
Plt Count 309
APTT Pending
Sodium 135
Potassium 3.5
Chloride 109 H
Carbon Dioxide 19 L
BUN 12
Creatinine 1.0
Glucose 61 L
Calcium 8.5
Vital Signs:
Vital Signs
Temp Pulse Resp BP Pulse Ox
98.3 F 77 18 113/76 97
02/25/24 07:00 02/25/24 07:00 02/25/24 07:00 02/25/24 07:00 02/25/24 07:00
I&O
02/24/24 02/25/24 02/26/24
06:59 06:59 06:59
Intake Total 960 / 960 0 / 0
Balance 960 / 960 0 / 0
[2024-02-25 11:16] LABS: APTT 30.6 Sec (23.4-35.0)
[2024-02-25] MEDS: HEPARIN 25000 UNITS/250 ML IV (12:25)
[2024-02-25 15:00] VITALS: BP 124/78
--- NOTE | 2024-02-25 16:07 | PTCARENOTE ---
Heparin gtt started as per MD order. Next PTt at 1830. Pt resting in room, Diet advanced to full iuids. pt tolerated well.
[2024-02-25 20:02] LABS: APTT 116.3 Sec (23.4-35.0)
[2024-02-25 23:00] VITALS: BP 115/79
[2024-02-25] MEDS: TOPAMAX 100 MG PO (23:39)
[2024-02-25] MEDS: ROCEPHIN 2000 MG IV (23:41)
[2024-02-25] MEDS: STERILE WATER FOR INJECTION 20 ML IV (23:41)
[2024-02-26 02:58] LABS: Hematocrit 33.8 % (37.0-47.0); Hemoglobin 11.2 g/dL (12.0-16.0); Mean Corp Hgb Conc. 33.1 g/dL (33.0-37.0); Mean Corpuscular Hgb 30.2 pg (27.0-31.0); Mean Corpuscular Volume 91.1 fL (81.0-99.0); Mean Platelet Volume 9.1 fL (7.4-10.4); Platelet Count 274 10^3/uL (130-400); Red Blood Cell Count 3.71 10^6/uL (4.20-5.40); Red Cell Dist. Width 12.5 % (11.5-14.5); White Blood Cell Count 12.3 10^3/uL (4.8-10.8)
[2024-02-26 03:18] LABS: APTT 198.2 Sec (23.4-35.0)
[2024-02-26 04:14] LABS: Blood Urea Nitrogen 5 mg/dl (7-17); Calcium 8.3 mg/dl (8.4-10.2); Carbon Dioxide 23 mmol/L (22-30); Chloride 111 mmol/L (98-107); Estimated Creatinine Clearance 70 ml/min; Glucose 94 mg/dl (70-99); Magnesium 2.1 mg/dl (1.6-2.3); Potassium 3.5 mmol/L (3.5-5.1); Sodium 138 mmol/L (135-145); eGFR > 60.00
--- NOTE | 2024-02-26 06:29 | W.PN.HOSP.TC ---
Today's Communication/Plan
-
Monitor H&H
hep gtt transitioned to Eliquis
likely discharge in AM if tolerating well
Assessment / Plan
Assessment / Plan
General: Well Developed, Well Nourished and No Apparent Distress
HEENT: NormoCephalic, Moist mucous membranes and Atraumatic
Respiratory: Clear
Cardiac: S1/S2 and Regular Rhythm; No Murmur or Rub
GI: Soft, Non Distended, Normal Bowel Sounds and Tender; No Organomegaly
Musculoskeletal: No Clubbing, No Cyanosis and No Edema
Skin: No Rash
Neuro: AO x 3 and Nonfocal/grossly intact
Psych: Calm
Rectal bleeding likely from acute colitis, suspect ischemic
-CT abdomen pelvis with impression of Mild to moderate colitis extending from the transverse colon through the mid sigmoid colon. Mild pericolonic stranding. No free fluid seen within the abdomen or pelvis.Small filling defect seen within the
central superior mesenteric vein suspicious for nonocclusive SMV thrombus.
-Continue to trend hemoglobin
-GI eval appreciated, IV abx transitioned to PO, diet advanced tolerating well
-colorectal appreciated no indication for surgical intervention at this time.
Stool studies appreciated no significant growth
# Nonocclusive SMV thrombus
hep gtt transitioned to Eliquis 02/25 evening loading dose 10 mg BID for 7 days then 5 mg BID from then on.
vascular eval appreciated
hematology outpatient follow up recommended
#Mild Cr elevation
# Does not appear had NUBIA on admission, unknown baseline
Continue to monitor creatinine
IVF completed
Hypothyroidism
Synthroid
# Depression/anxiety
-Bupropion, citalopram continued
# Migraines
-Hold rizatriptan
Topamax continued
# DVT prophylaxis
-heparin
# CODE STATUS
-Full code
I spent a total of 55 minutes with the patient or on the floor. More than 50% of this time involved counseling and coordination of care.
Anticipated Discharge: Within 24 hours
Subjective/Interval History
-
Date of Service: February 26, 2024
reports feeling well. Denies new acute issues at this time. Diarrhea improving, no further bloody bowel movements. Dallin present during evaluation.
Objective Data
-
Labs:
Laboratory Results
02/25/24 02/26/24 02/26/24
19:37 02:35 02:36
WBC 12.3 H
Hgb 11.2 L
Hct 33.8 L
Plt Count 274
APTT 116.3 H 198.2 H*
Sodium 138
Potassium 3.5
Chloride 111 H
Carbon Dioxide 23
BUN 5 L
Creatinine 0.9
Glucose 94
Calcium 8.3 L
02/26/24
10:25
WBC
Hgb
Hct
Plt Count
APTT Pending
Sodium
Potassium
Chloride
Carbon Dioxide
BUN
Creatinine
Glucose
Calcium
Vital Signs:
Vital Signs
Temp Pulse Resp BP Pulse Ox
98.7 F 70 16 115/79 100
02/25/24 23:00 02/25/24 23:00 02/25/24 23:00 02/25/24 23:00 02/25/24 23:30
I&O
02/24/24 02/25/24 02/26/24
06:59 06:59 06:59
Intake Total 960 / 960 0 / 0 1140 / 1140
Output Total 350 / 350
Balance 960 / 960 0 / 0 790 / 790
[2024-02-26] MEDS: SYNTHROID 75 MCG PO (06:41)
[2024-02-26] MEDS: HEPARIN 25000 UNITS/250 ML IV (07:14)
[2024-02-26 07:30] VITALS: BP 133/80
[2024-02-26] MEDS: FLAGYL 500 MG 100 IV (07:47)
[2024-02-26] MEDS: WELLBUTRIN XL (24 hour extended release) 150 MG PO (07:47)
[2024-02-26] MEDS: LEXAPRO 20 MG PO (07:47)
[2024-02-26 08:01] LABS: Vancomycin Trough < 5.0 ug/ml (5-20)
--- NOTE | 2024-02-26 08:27 | W.PN.GI.CBS2 ---
Addendum entered and electronically signed by Breann Alonso Do, MD 02/26/24 10:36:
I saw and examined the patient.
The SIGNALLING AND COMMUNICATIONS ENGINEER's note was reviewed and I agree with the note.
Comment: She ate 100% of low residue diet for breakfast. No abd pain at all. Had one loose BM that is no longer bloody. Vitals stable. NTTP, NABS. Labs reviewed mild leukocytosis. Hbg 11.
Recommendations
- Tolerating LDR
- Change abx to oral augmentin to complete 10day course for ischemic colitis
- Ok to transition to oral anticoagulation
- To stop OCPs and triptan. See hematology OP basis for hypercoagulable workup
- She will FU with her GI at [facility]
Ok from GI perspective for hosp d/c today Above d/w hospitalist. At this juncture no new recs will sign off please call for questions
Original Note:
Today's Communication / Plan
-
pain and bleeding remain improved
will advance to low residue diet
hbg 12.1- 11.2 with heparin gtt cont to follow
continue antibiotics
stool studies neg so far
advised to update outside providers on admission with control and migraine management
Advise see hematology for OP hypercoagulable workup in future-- pt follows at [facility]
s/p colorectal and vascular evaluation completed
Assessment / Plan
-
Sarah is a 48yo with hx hypothyroidism, migraines with onset of lower abdominal pain with nausea, vomiting, diarrhea and rectal bleeding. On admission CT noted with mild to moderate colitis from transverse colon through mid sigmoid with mild
stranding. Small defect in SMV with concern for non occlusive SMV thrombosis. Normal colonoscopy per pt 2022 at [facility].
Impression
-colitis transverse through sigmoid colon suspect to be ischemic
-non occlusive SMV thrombosis
-leukocytosis
-NUBIA on admission
-migraines with recent medication adjustment and use of Rizatriptan
-chronic hormone therapy for control
-hypothyroidism
-depression/anxiety
Plan
pain and bleeding remain improved
will advance to low residue diet
hbg 12.1- 11.2 with heparin gtt cont to follow
continue antibiotics
stool studies neg so far
advised to update outside providers on admission with control and migraine management
Advise see hematology for OP hypercoagulable workup in future-- pt follows at [facility]
s/p colorectal and vascular evaluation completed
Subjective
Subjective
Date of Service: February 26, 2024
02/25 brown stool-- no further bleeding on heparin gtt tolerating full liquid diet
Objective
Data Reviewed
Laboratory Data:
Laboratory Results
02/26/24 02:36
02/26/24 02:36
Laboratory Results
APTT 198.2 Sec (23.4-35.0) H* 02/26/24 02:35
Magnesium 2.1 mg/dl (1.6-2.3) 02/26/24 02:36
Total Bilirubin 0.5 mg/dl (0.2-1.3) 02/23/24 10:01
AST 29 U/L (14-36) 02/23/24 10:01
ALT 34 U/L (0-35) 02/23/24 10:01
Alkaline Phosphatase 65 U/L (38-126) 02/23/24 10:01
Vital Signs and I&O:
Vital Signs
Temp Pulse Resp BP Pulse Ox
98.1 F 60 16 133/80 98
02/26/24 07:30 02/26/24 07:30 02/26/24 07:30 02/26/24 07:30 02/26/24 07:30
I&O
02/25/24 02/26/24 02/27/24
06:59 06:59 06:59
Intake Total 0 / 0 1140 / 1140
Output Total 350 / 350
Balance 0 / 0 790 / 790
Physical Exam
Physical Exam
HEENT: Anicteric and Moist mucous membranes
Cardiology: Normal Sinus Rhythm
Pulmonary: Clear
GI: Soft, Non Distended and Tender (very minimal lower abdominal tenderness )
Extremities: No Edema
Neuro: Non Focal
--- NOTE | 2024-02-26 10:07 | W.PN.CRS1 ---
Today's Communication / Plan
-
diet advancement
no surgery at this time
Assessment/Plan
-
48 yo female with left sided colitis of unclear etiology. Infectious work up underway. Nonocclusive SMV thrombus present (suspected d/t inflammation of colon)
1. Vitals normal.
2. Tolerating fulls. Advanced to low residue per GI.
3. On a heparin gtt, no further bleeding.
4. Stool studies so far are negative.
5. No surgery warenteed at this time.
Subjective Data
Subjective Data
Date of Service: February 26, 2024
Patient states she has had no further rectal bleeding. She has some diarrhea but it is slowing down. She denies abdominal pain.
Objective Data
-
Vital Signs
Temp Pulse Resp BP Pulse Ox
98.1 F 60 16 133/80 98
02/26/24 07:30 02/26/24 07:30 02/26/24 07:30 02/26/24 07:30 02/26/24 07:30
Intake & Output
02/25/24 02/26/24 02/27/24
06:59 06:59 06:59
Intake Total 0 / 0 1140 / 1140
Output Total 350 / 350
Balance 0 / 0 790 / 790
Intake:
Oral fluids 0 / 0 720 / 720
IV fluids (Total) 320 / 320
IV piggybacks 100 / 100
Output:
Urine, Voided 350 / 350
Other:
Number of approximated SMALL 1
amounts of urine
Number of approximated MODERATE 5 2
amounts of urine
Lab Results
02/26/24 02:36
02/26/24 02:36
Physical Exam
-
Abdomen: Soft, Non Distended and Non Tender
Skin: Warm and Dry
[2024-02-26 10:50] LABS: APTT 91.2 Sec (23.4-35.0)
[2024-02-26] MEDS: AUGMENTIN 875 MG/125 MG 1 TABLET PO ×2 (11:47→20:38)
[2024-02-26 16:00] VITALS: BP 115/76
[2024-02-26 16:46] LABS: APTT 68.5 Sec (23.4-35.0)
[2024-02-26] MEDS: ELIQUIS 10 MG PO (17:58)
[2024-02-26] MEDS: TOPAMAX 100 MG PO (20:39)
[2024-02-26 23:00] VITALS: BP 121/79
[2024-02-27] MEDS: SYNTHROID 75 MCG PO (06:13)
[2024-02-27 06:22] LABS: Hematocrit 36.4 % (37.0-47.0); Hemoglobin 12.3 g/dL (12.0-16.0); Mean Corp Hgb Conc. 33.8 g/dL (33.0-37.0); Mean Corpuscular Hgb 29.9 pg (27.0-31.0); Mean Corpuscular Volume 88.3 fL (81.0-99.0); Mean Platelet Volume 9.1 fL (7.4-10.4); Platelet Count 322 10^3/uL (130-400); Red Blood Cell Count 4.12 10^6/uL (4.20-5.40); Red Cell Dist. Width 12.8 % (11.5-14.5); White Blood Cell Count 9.2 10^3/uL (4.8-10.8)
[2024-02-27 07:03] LABS: Blood Urea Nitrogen 6 mg/dl (7-17); Calcium 9.3 mg/dl (8.4-10.2); Carbon Dioxide 21 mmol/L (22-30); Chloride 110 mmol/L (98-107); Estimated Creatinine Clearance 70 ml/min; Glucose 100 mg/dl (70-99); Potassium 3.9 mmol/L (3.5-5.1); Sodium 137 mmol/L (135-145); eGFR > 60.00
[2024-02-27] MEDS: ELIQUIS 10 MG PO (07:30)
[2024-02-27] MEDS: LEXAPRO 20 MG PO (07:30)
[2024-02-27] MEDS: AUGMENTIN 875 MG/125 MG 1 TABLET PO (07:31)
[2024-02-27] MEDS: WELLBUTRIN XL (24 hour extended release) 150 MG PO (07:31)
--- NOTE | 2024-02-27 07:57 | W.PN.HOSP.TC ---
Today's Communication/Plan
-
discharge
Assessment / Plan
Assessment / Plan
Physical Exam
General: Well Developed, Well Nourished and No Apparent Distress
HEENT: NormoCephalic, Moist mucous membranes and Atraumatic
Respiratory: Clear
Cardiac: S1/S2 and Regular Rhythm; No Murmur or Rub
GI: Soft, Non Distended, Normal Bowel Sounds and Tender; No Organomegaly
Musculoskeletal: No Clubbing, No Cyanosis and No Edema
Skin: No Rash
Neuro: AO x 3 and Nonfocal/grossly intact
Psych: Calm
Rectal bleeding likely from acute colitis, suspect ischemic
-CT abdomen pelvis with impression of Mild to moderate colitis extending from the transverse colon through the mid sigmoid colon. Mild pericolonic stranding. No free fluid seen within the abdomen or pelvis.Small filling defect seen within the
central superior mesenteric vein suspicious for nonocclusive SMV thrombus.
-Continue to trend hemoglobin
-GI eval appreciated, IV abx transitioned to PO, to complete total 10 day course abx for ischemic colitis, diet advanced tolerating well
-colorectal appreciated no indication for surgical intervention at this time.
Stool studies appreciated no significant growth
# Nonocclusive SMV thrombus
hep gtt transitioned to Eliquis 02/25 evening loading dose 10 mg BID for 7 days then 5 mg BID from then on. Tolerating well
vascular eval appreciated
hematology outpatient follow up recommended
#Mild Cr elevation
# Does not appear had NUBIA on admission, unknown baseline
Continue to monitor creatinine
IVF completed
Hypothyroidism
Synthroid
# Depression/anxiety
-Bupropion, citalopram continued
# Migraines
-Hold rizatriptan
Topamax continued
# DVT prophylaxis
-heparin
# CODE STATUS
-Full code
Medically stable for discharge home with outpatient follow up recommendations.
Total Time Preparing Discharge ___50____ minutes including examination of the patient, summary of the hospital stay, instructions for continuing care to all relevant caregivers; and preparation of discharge records, prescriptions, and referral
forms if necessary.
Anticipated Discharge: Today
Subjective/Interval History
-
Date of Service: February 27, 2024
Seen and examined at bedside in no acute distress. Reports feeling well. Denies new acute issues at this time. Eager to go home.
Objective Data
-
Labs:
Laboratory Results
02/27/24
06:06
WBC 9.2
Hgb 12.3
Hct 36.4 L
Plt Count 322
Sodium 137
Potassium 3.9
Chloride 110 H
Carbon Dioxide 21 L
BUN 6 L
Creatinine 0.9
Glucose 100 H
Calcium 9.3
Vital Signs:
Vital Signs
Temp Pulse Resp BP Pulse Ox
98.9 F 73 12 121/79 96
02/26/24 23:00 02/26/24 23:00 02/26/24 23:00 02/26/24 23:00 02/26/24 23:00
I&O
02/26/24 02/27/24 02/28/24
06:59 06:59 06:59
Intake Total 1140 / 1140 720 / 720 960 / 960
Output Total 350 / 350
Balance 790 / 790 720 / 720 960 / 960
[2024-02-27 08:05] VITALS: BP 115/77
[2024-02-27 11:20] VITALS: BP 119/81
--- NOTE | 2024-02-27 11:38 | W.DCSUMMARY ---
Discharge Summary
Discharge Data
Date of Admission: 02/23/24
Date of Discharge: 02/27/24
-
Pending Results: No
Hospital Course
48F hypothyroidism and migraine p/w lower abdominal pressure associate with multiple episodes of nausea, vomiting, diarrhea, rectal bleeding <1 day duration. Patient denied any headache, dizziness, syncopal episode, fever, chills, chest pain, short
of breath, dysuria, or hematuria. CT with colitis, stented superior mesenteric vein suspicious for nonocclusive SMV thrombus. Rectal bleeding likely from acute ischemic colitis. CT abdomen pelvis noted Mild to moderate colitis extending from the
transverse colon through the mid sigmoid colon. Mild pericolonic stranding. No free fluid seen within the abdomen or pelvis. Small filling defect seen within the central superior mesenteric vein suspicious for nonocclusive SMV thrombus. GI
evaluated and IV abx was eventually transitioned to PO, to complete total 10 day course abx for ischemic colitis, diet was advanced and tolerated well. Colorectal appreciated no indication for surgical intervention at this time. Stool studies
appreciated no significant growth. Nonocclusive SMV thrombus, hep gtt was transitioned to Eliquis 02/25 evening loading dose 10 mg BID for 7 days then 5 mg BID from then on. Tolerated well.
Vascular evaluated during hospitalization. Hematology outpatient follow up was recommended. Medically stable, patient was discharged home with outpatient follow up recommendations.
Discharge Plan
-
Patient Disposition: Home (Routine Discharge)
Discharge Diagnosis/Procedures: Rectal Bleeding due to acute ischemic colitis, Superior Mesenteric Vein (SMV) Thrombosis, Hypothyroidism, Depression, Anxiety, Migraines
Condition: Good
Diet: Low Residue
Additional Diets: low residue x 2 weeks then advance to regular diet if abdominal pain improves
Activity: As tolerated
Driving Restrictions: As prior to admission
Bathing Restrictions: None
Blood Work: Please repeat CBC and CMP with primary care provider in 1 week of discharge.
Activity Restrictions/Additional Instructions:
Please follow up with primary care provider in 1 week of discharge and, in 2-4 weeks of discharge, follow up with GI and Hematology.
For SMV thrombosis, ischemic colitis, you've been prescribed Eliquis 10 mg twice day for total 7 days, 1st two doses received in hospital. March 04 morning is your last 10 mg dose before reducing to 5 mg twice a day from then on. Please follow up
with primary care provider GI or Hematology for refills and before considering discontinuing Eliquis.
Augmentin has been prescribed to cover infection related to ischemic Colitis. Last day of antibiotics is 03/03 to complete total 10 days of antibiotics treatment.
It is recommended at this time that you stop further oral contraceptive and Triptan use, due to concern these medications may have promoted your clot formation. Please follow up with your primary care provider and/or other healthcare provider
involved in your care to determine when safe to resume, if necessary to resume, and/or if an alternative medication is required.
Please take medications as prescribed/recommended and follow up with primary care provider and/or other healthcare provider involved in your care for refills and/or further adjustments to your medication regimen as necessary.
Referrals:
Mely Hernandez CRNP [Family Provider] - in one week
Breann Montero MD [Active] - in two to four weeks (follow up with Dr. Montero or GI at [facility] as followed in past)
Ivory Mei MD [Active] - in two to four weeks (SMV non occlusive thrombus and ischemic colitis)
Prescriptions:
New
Eliquis DVT-PE Treat 30D Start 5 mg (74 tabs) tablets,dose pack
See Rx Instructions .ROUTE .COMPLEX Qty: 74 0RF
Rx Instructions:
10 mg twice a day. Last 10 mg dose morning Mon 03/04
Then reduce dose to 5 mg twice a day then on.
amoxicillin-pot clavulanate 875-125 mg Tablet
1 tab PO Q12 6 Days Qty: 12 0RF
Rx Instructions:
Continue through 03/03 then stop
Continued
cyanocobalamin (vitamin B-12) [Vitamin B-12] 1,000 mcg Tablet
1,000 mcg PO DAILY
Hair,Skin and Nails Tablet
1 tab PO HS
topiramate 100 mg Tablet
100 mg PO HS
escitalopram oxalate 20 mg Tablet
20 mg PO DAILY
bupropion HCl 150 mg Tablet Extended Release 24 Hr
150 mg PO DAILY
red yeast rice 600 mg Capsule
600 mg PO DAILY
Ubrelvy 100 mg Tablet
100 mg PO DAILYPRN PRN (Reason: migraine)
Synthroid
75 mcg
Discontinued
norgestimate-ethinyl estradiol [Ada] 0.25-35 mg-mcg Tablet
1 tab PO DAILY
rizatriptan
1 tab PO DAILYPRN PRN (Reason: migraine)
Discharge Orders:
Discharge Patient (As Directed); Ordered 02/27/24
Ordered By: Tiffanie Jean
Discharge Date and Time
Discharge Date/Time: 02/27/24 12:53
Print Language: SWAZI
== END 2024-02-27 12:53 | disposition home or self-care (01) | DRG 385 ==
LOC: 3 WEST ACU 15:10
PROVIDERS: Internal Medicine; Registered Nurse; ADMITTING PHYSICIAN Hospitalist; ATTENDING PHYSICIAN Internal Medicine; CONSULT PHYSICIAN Internal Medicine Gastroenterology; CONSULT PHYSICIAN Surgery Vascular Surgery; EMERGENCY PHYSICIAN Emergency Medicine; FAMILY PHYSICIAN Family Medicine; OTHER PHYSICIAN Surgery
DX: K51.511 Left sided colitis with rectal bleeding (principal); K55.039 Acute (reversible) ischemia of large intestine, extent unspecified; A09 Infectious gastroenteritis and colitis, unspecified; K92.2 Gastrointestinal hemorrhage, unspecified; E87.1 Hypo-osmolality and hyponatremia; N17.9 Acute kidney failure, unspecified; E03.9 Hypothyroidism, unspecified; G43.909 Migraine, unspecified, not intractable, without status migrainosus; F32.A Depression, unspecified; K21.9 Gastro-esophageal reflux disease without esophagitis; D72.829 Elevated white blood cell count, unspecified; F41.9 Anxiety disorder, unspecified; E86.0 Dehydration; Z88.2 Allergy status to sulfonamides
CPT/HCPCS: 74177; 80048; 80053; 80202; 83735; 84703; 85025; 85027; 85730; 87040; 87045; 87046; 87324; 87328; 87329; 87427; 87449; 89055; 93005; 96360; 99285; Q9967